=== PATIENT | female | born 1940 | race Caucasian/White ===

== ENCOUNTER 2016-12-11 09:20 | Observation (INO) | payer OTHER ==
[~2016-12-11] VITALS: Ht 167.6 cm; Wt 78.7 kg
[~2016-12-11 09:20] MED LIST: ASPIR 8181 M1 PO; AZOR 5/20 MG1 TABLET PO; B COMPLETE1 EACH PO; CEFTIN500 MG PO; CENTRUM SILVER1 EAC3 PO; CENTRUM SILVER1 EAC4 PO; CLARITIN,ALAVAR10 MG PO; CORICIDIN HBP1 EACH PO; COSAMIN ASU CA1 EACH PO; ENALAPRIL MALEA20 MG PO; ESGIC 50-325-41 EAC1 PO; FIORICET 50-301 EACH PO; FISH OIL 1,2001 EAC4 PO; FLAGYL500 MG PO; FLORASTOR250 MG PO; FUROSEMIDE20 MG PO; IMODIUM MS REL1 EACH PO; LIBRIUM5 MG PO; LISINOPRIL10 MG PO; LO-DOSE ASPIRIN81 M1 PO; LOPERAMIDE2 M1 PO; MAG-OXIDE400 MG PO; MAXZIDE 75/501 EACH PO; MELOXICAM7.5 MG PO; METFORMIN HCL500 MG PO; METOPROLOL TART50 MG PO; NIACIN 500 MG1 EACH PO; NORCO 5/3251 TABLET PO; NORVASC5 MG PO; PREMARIN0.625 MG PO; TEKTURNA150 MG PO; TRAMADOL HCL50 MG PO; ZEGERID OTC 201 EACH PO
[2016-12-11 11:25] LABS: HEMATOCRIT 41.3 % (36.0-46.0); MCH 29.9 PG (29.0-34.0); MCHC 35.8 G/DL (30.0-36.0); MCV 83.4 FL (83-99); MEAN PLAT.VOLUME 9.5 uM^3 (9.5-12.4); PLATELET COUNT 233 K/uL (156-360); RBC DIS.WIDTH-CV 12.2 % (11.8-14.6); RBC DIS.WIDTH-SD 37.1 % (39-53); RED BLOOD COUNT 4.95 M/uL (3.80-5.20); WHITE BLOOD COUNT 14.1 K/uL (4.1-10.2)
[2016-12-11 11:32] LABS: CHLORIDE 88 mEq/L (99-109); POTASSIUM 3.4 mEq/L (3.7-5.4); SODIUM 132 mEq/L (136-147)
[2016-12-11 11:34] LABS: GLUCOSE 150 mg/dL (70-99)
[2016-12-11 11:35] LABS: ANION GAP 14 MEQ/L (2-14)
[2016-12-11 11:38] LABS: GFR ESTIMATE (CALCULATED) > 59 mL/min/
[2016-12-11 11:39] LABS: UREA NITROGEN (BUN) 15 mg/dL (9-23)
[2016-12-11 11:57] LABS: LIPASE 8 U/L (1.0-51.0)
[2016-12-11 13:40] LABS: TROP-I INTERPRETATION NEGATIVE; TROPONIN-I 0.03 ng/mL (0.0-0.30)
[2016-12-11] MEDS ORDERED: NEURONTIN100 MG PO (16:30)
[2016-12-11] MEDS ORDERED: LISINOPRIL40 MG PO (16:30)
[2016-12-11] MEDS ORDERED: ANORO ELLIPTA1 EACH IH (16:33)
[2016-12-11] MEDS ORDERED: HYDROCHLOROTHIA25 MG PO (16:33)
[2016-12-11] MEDS ORDERED: JANUVIA25 M1 PO (16:33)
[2016-12-11] MEDS ORDERED: MELOXICAM7.5 MG PO (16:33)
[2016-12-11 17:36] LABS: TROP-I INTERPRETATION NEGATIVE; TROPONIN-I 0.02 ng/mL (0.0-0.30)
[2016-12-11 19:33] VITALS: BP 180/85
[2016-12-11 23:40] VITALS: BP 187/78
[2016-12-12 00:26] LABS: TROP-I INTERPRETATION NEGATIVE; TROPONIN-I 0.03 ng/mL (0.0-0.30)
[2016-12-12 04:01] LABS: ADD MIUA? YES; BILIRUBIN NEGATIVE; BLOOD NEGATIVE; COLOR YELLOW ((YELLOW)); GLUCOSE (STRIP) NEGATIVE; KETONES 5; LEUKOCYTES SMALL; NITRITE NEGATIVE; PROTEIN (STRIP) NEGATIVE; SPECIFIC GRAVITY 1.015 (1.000-1.030); UROBILINOGEN 0.2 MG/DL (0.2-1.0)
[2016-12-12 04:19] VITALS: BP 152/74
[2016-12-12 04:20] LABS: BACTERIA RARE /HPF; EPITHELIAL CELLS NONE SEEN /HPF; MUCUS NONE SEEN /LPF; RED BLOOD CELLS 0-5 /HPF (0-5); UCUL ADDED? NO
[2016-12-12 06:45] LABS: HEMATOCRIT 34.9 % (36.0-46.0); MCH 30.2 PG (29.0-34.0); MCHC 35.5 G/DL (30.0-36.0); MCV 85.1 FL (83-99); MEAN PLAT.VOLUME 9.5 uM^3 (9.5-12.4); PLATELET COUNT 183 K/uL (156-360); RBC DIS.WIDTH-CV 12.7 % (11.8-14.6); WHITE BLOOD COUNT 7.8 K/uL (4.1-10.2)
[2016-12-12 09:12] LABS: POINT-OF-CARE METER ID UU13113831
[2016-12-12 09:38] VITALS: BP 168/70
== END 2016-12-12 12:20 | disposition home or self-care (01) ==
LOC: EME 09:20 → EDOF 16:54 → 5WEST 16:54 → EDOF 16:54 → 5WEST 19:19
PROVIDERS: Internal Medicine; Nurse Practitioner Family
DX: R11.2 Nausea with vomiting, unspecified (principal); E11.9 Type 2 diabetes mellitus without complications; Z79.82 Long term (current) use of aspirin; R10.13 Epigastric pain; I50.9 Heart failure, unspecified; I11.0 Hypertensive heart disease with heart failure; E78.5 Hyperlipidemia, unspecified; I25.2 Old myocardial infarction; I16.0 Hypertensive urgency; E87.6 Hypokalemia
CPT/HCPCS: 71020; 74177; 80048; 81003; 82948; 83605; 83690; 84484; 85027; 93005; 99281; 99285; G0378; J0360; J1650; J7030; S0028

== ENCOUNTER 2017-01-09 23:43 | Inpatient (IN) | payer OTHER ==
[~2017-01-09] VITALS: Ht 167.6 cm; Wt 78.6 kg
[~2017-01-09 23:43] MED LIST changes: +ANORO ELLIPTA1 EACH IH; +HYDROCHLOROTHIA25 MG PO; +JANUVIA25 M1 PO; +LISINOPRIL40 MG PO; +NEURONTIN100 MG PO
[2017-01-10 00:40] LABS: CHLORIDE 72 mEq/L (99-109)
[2017-01-10 00:41] LABS: INTER. NORMALIZED RATIO 1.1; MAGNESIUM 1.8 mg/dL (1.3-2.7); PTT 26.7 (25-32); SODIUM 120 mEq/L (136-147)
[2017-01-10 00:42] LABS: GLUCOSE 148 mg/dL (70-99)
[2017-01-10 00:44] LABS: ANION GAP 17 MEQ/L (2-14); POTASSIUM 2.1 mEq/L (3.7-5.4)
[2017-01-10 00:46] LABS: GFR ESTIMATE (CALCULATED) 51 mL/min/
[2017-01-10 00:47] LABS: UREA NITROGEN (BUN) 23 mg/dL (9-23)
[2017-01-10 00:49] LABS: CREATINE KINASE 333 IU/L (1-294)
[2017-01-10 00:54] LABS: EOSINOPHIL (%) 0.5 % (0-5); HEMATOCRIT 34.8 % (36.0-46.0); IMMATURE GRANULOCYTE (%) 0.3 % (0.0-0.7); INSTRUMENT ABS NEUTROPHIL CT 6.8 K/uL; MCH 29.8 PG (29.0-34.0); MCHC 37.4 G/DL (30.0-36.0); MCV 79.8 FL (83-99); MEAN PLAT.VOLUME 8.6 uM^3 (9.5-12.4); MONOCYTE (%) 10.7 % (3-12); MONOCYTE COUNT 0.9 K/uL (0-0.8); NEUTROPHIL COUNT 6.8 K/uL (1.8-6.4); RBC DIS.WIDTH-CV 11.4 % (11.8-14.6); RBC DIS.WIDTH-SD 33.1 % (39-53); RED BLOOD COUNT 4.36 M/uL (3.80-5.20); TROP-I INTERPRETATION NEGATIVE; TROPONIN-I 0.03 ng/mL (0.0-0.30); WHITE BLOOD COUNT 8.8 K/uL (4.1-10.2)
[2017-01-10 00:56] LABS: PLATELET COUNT 188 K/uL (156-360)
[2017-01-10 04:45] VITALS: BP 144/69
[2017-01-10 05:59] LABS: ANION GAP 13 MEQ/L (2-14); GFR ESTIMATE (CALCULATED) > 59 mL/min/; GLUCOSE 128 mg/dL (70-99); MAGNESIUM 1.8 mg/dl (1.3-2.7); SAMPLE HEMOLYSIS CHECK 0; SAMPLE ICTERIC CHECK 0; SAMPLE LIPEMIA CHECK 0; SODIUM 122 MEQ/L (136-147); UREA NITROGEN (BUN) 17 mg/dL (9-23)
[2017-01-10 06:33] LABS: CHLORIDE 79 MEQ/L (99-109); POTASSIUM 2.7 MEQ/L (3.7-5.4)
[2017-01-10 06:58] LABS: TROP-I INTERPRETATION NEGATIVE; TROPONIN-I 0.03 ng/mL (0.0-0.30)
[2017-01-10 07:15] VITALS: BP 146/67
[2017-01-10] MEDS ORDERED: APRESOLINE100 MG PO (11:22)
[2017-01-10 11:41] VITALS: BP 145/65
[2017-01-10 11:41] LABS: TROP-I INTERPRETATION NEGATIVE; TROPONIN-I 0.03 ng/mL (0.0-0.30)
[2017-01-10 11:51] LABS: POINT-OF-CARE USER ID ENVKC36
[2017-01-10 13:17] LABS: ANION GAP 7 MEQ/L (2-14); CHLORIDE 82 MEQ/L (99-109); GFR ESTIMATE (CALCULATED) 57 mL/min/; GLUCOSE 110 mg/dL (70-99); SAMPLE HEMOLYSIS CHECK 0; SAMPLE ICTERIC CHECK 0; SAMPLE LIPEMIA CHECK 0; SODIUM 120 MEQ/L (136-147); UREA NITROGEN (BUN) 18 mg/dL (9-23)
[2017-01-10 13:19] LABS: POTASSIUM 3.6 MEQ/L (3.7-5.4)
[2017-01-10 14:52] LABS: ADD MIUA? YES; BILIRUBIN NEGATIVE; BLOOD NEGATIVE; COLOR YELLOW ((YELLOW)); GLUCOSE (STRIP) NEGATIVE; KETONES NEGATIVE; LEUKOCYTES SMALL; NITRITE NEGATIVE; PROTEIN (STRIP) NEGATIVE; SPECIFIC GRAVITY 1.006 (1.000-1.030); UROBILINOGEN 0.2 MG/DL (0.2-1.0)
[2017-01-10 15:15] VITALS: BP 147/66
[2017-01-10 15:31] LABS: BACTERIA 3+ /HPF; EPITHELIAL CELLS RARE /HPF; MUCUS NONE SEEN /LPF; RED BLOOD CELLS 15-20 /HPF (0-5); WHITE BLOOD CELLS CLUMP RARE /HPF (0-5)
[2017-01-10 16:34] LABS: POINT-OF-CARE USER ID ENVKC36
[2017-01-10 17:05] LABS: ANION GAP 9 MEQ/L (2-14); CHLORIDE 82 MEQ/L (99-109); GFR ESTIMATE (CALCULATED) 57 mL/min/; GLUCOSE 108 mg/dL (70-99); POTASSIUM 4.2 MEQ/L (3.7-5.4); SAMPLE HEMOLYSIS CHECK 0; SAMPLE ICTERIC CHECK 0; SAMPLE LIPEMIA CHECK 0; SODIUM 122 MEQ/L (136-147); UREA NITROGEN (BUN) 20 mg/dL (9-23)
[2017-01-10 19:00] VITALS: BP 118/56
[2017-01-10 20:16] LABS: ANION GAP 9 MEQ/L (2-14); CHLORIDE 83 MEQ/L (99-109); GFR ESTIMATE (CALCULATED) > 59 mL/min/; POTASSIUM 3.8 MEQ/L (3.7-5.4); SAMPLE HEMOLYSIS CHECK 0; SAMPLE ICTERIC CHECK 0; SAMPLE LIPEMIA CHECK 0; SODIUM 122 MEQ/L (136-147); UREA NITROGEN (BUN) 19 mg/dL (9-23)
[2017-01-10 20:31] LABS: GLUCOSE 200 mg/dL (70-99)
[2017-01-10 23:00] VITALS: BP 136/63
[2017-01-11] VITALS (7 sets, daily range): BP systolic 133–184; BP diastolic 63–84
[2017-01-11 07:53] LABS: HEMATOCRIT 31.7 % (36.0-46.0); MCH 30.9 PG (29.0-34.0); MCHC 36.6 G/DL (30.0-36.0); MEAN PLAT.VOLUME 8.6 uM^3 (9.5-12.4); PLATELET COUNT 170 K/uL (156-360); RBC DIS.WIDTH-CV 12.2 % (11.8-14.6); RBC DIS.WIDTH-SD 37.2 % (39-53); RED BLOOD COUNT 3.75 M/uL (3.80-5.20); WHITE BLOOD COUNT 5.6 K/uL (4.1-10.2)
[2017-01-11 07:54] LABS: MCV 84.5 FL (83-99)
[2017-01-11 08:23] LABS: POINT-OF-CARE METER ID UU13113781; POINT-OF-CARE USER ID ENVKC36
[2017-01-11 08:55] LABS: ANION GAP 8 MEQ/L (2-14); CHLORIDE 90 MEQ/L (99-109); GFR ESTIMATE (CALCULATED) > 59 mL/min/; POTASSIUM 4.1 MEQ/L (3.7-5.4); SAMPLE HEMOLYSIS CHECK 0; SAMPLE ICTERIC CHECK 0; SAMPLE LIPEMIA CHECK 0; SODIUM 128 MEQ/L (136-147); UREA NITROGEN (BUN) 14 mg/dL (9-23); URIC ACID 5.8 mg/dL (3.1-9.2)
[2017-01-11 08:56] LABS: GLUCOSE 95 mg/dL (70-99)
[2017-01-11 12:02] LABS: POINT-OF-CARE METER ID UU13113781; POINT-OF-CARE USER ID ENVKC36
[2017-01-11 16:56] LABS: POINT-OF-CARE METER ID UU13113698; POINT-OF-CARE USER ID ENVKC36
[2017-01-11 21:30] LABS: POINT-OF-CARE METER ID UU13113781
[2017-01-12 03:56] VITALS: BP 190/84
[2017-01-12 04:29] VITALS: BP 185/78
[2017-01-12 05:35] LABS: EOSINOPHIL (%) 2.7 % (0-5); EOSINOPHIL COUNT 0.2 K/uL (0-0.3); IMMATURE GRANULOCYTE (%) 0.5 % (0.0-0.7); INSTRUMENT ABS NEUTROPHIL CT 4.9 K/uL; LYMPHOCYTE COUNT 1.6 K/uL (1.0-2.8); MCH 30.8 PG (29.0-34.0); MCHC 35.8 G/DL (30.0-36.0); MCV 85.9 FL (83-99); MEAN PLAT.VOLUME 9.1 uM^3 (9.5-12.4); MONOCYTE (%) 8.6 % (3-12); MONOCYTE COUNT 0.6 K/uL (0-0.8); NEUTROPHIL (%) 66.3 % (45-76); NEUTROPHIL COUNT 4.9 K/uL (1.8-6.4); PLATELET COUNT 195 K/uL (156-360); RBC DIS.WIDTH-CV 12.4 % (11.8-14.6); RBC DIS.WIDTH-SD 38.9 % (39-53); RED BLOOD COUNT 4.19 M/uL (3.80-5.20); WHITE BLOOD COUNT 7.4 K/uL (4.1-10.2)
[2017-01-12 05:48] VITALS: BP 144/96
[2017-01-12 05:59] LABS: ANION GAP 10 MEQ/L (2-14); CHLORIDE 96 MEQ/L (99-109); GFR ESTIMATE (CALCULATED) > 59 mL/min/; GLUCOSE 105 mg/dL (70-99); POTASSIUM 4.3 MEQ/L (3.7-5.4); SAMPLE HEMOLYSIS CHECK 0; SAMPLE ICTERIC CHECK 0; SAMPLE LIPEMIA CHECK 0; SODIUM 134 MEQ/L (136-147); UREA NITROGEN (BUN) 13 mg/dL (9-23)
[2017-01-12 07:49] VITALS: BP 180/78
[2017-01-12 11:29] LABS: POINT-OF-CARE METER ID UU13113698
== END 2017-01-12 12:00 | disposition home or self-care (01) | DRG 641 ==
LOC: EME → EDBD 23:43 → EME 23:43 → 4EAST 01-10 03:25 → EDOF 01-10 03:25 → 4EAST 01-10 04:44
PROVIDERS: Emergency Medicine; Hospitalist; Internal Medicine; Internal Medicine Nephrology
DX: E87.6 Hypokalemia (principal); E87.1 Hypo-osmolality and hyponatremia; I11.0 Hypertensive heart disease with heart failure; E78.5 Hyperlipidemia, unspecified; E11.42 Type 2 diabetes mellitus with diabetic polyneuropathy; T50.2X5A Adverse effect of carbonic-anhydrase inhibitors, benzothiadiazides and other diuretics, initial encounter; M19.90 Unspecified osteoarthritis, unspecified site; I50.9 Heart failure, unspecified; I25.2 Old myocardial infarction; Z90.49 Acquired absence of other specified parts of digestive tract; Z79.84 Long term (current) use of oral hypoglycemic drugs; Z79.899 Other long term (current) drug therapy
CPT/HCPCS: 36415; 80048; 80048 91; 80053; 81003; 82088 90; 82150; 82436; 82550; 82570; 82948; 83690; 83735; 83935; 84100; 84133; 84244 90; 84300; 84439; 84443; 84484; 84550; 85025; 85027; 85610; 85730; 87086 GA; 87338; 87493; 93005; 94640; 94640 76; 99281; 99285; J0360; J1644; J2405; J3480; J7030; J7040; S0028

== ENCOUNTER 2017-12-24 21:05 | Inpatient (IN) | payer OTHER ==
[~2017-12-24] VITALS: Ht 162.6 cm; Wt 85.8 kg
[~2017-12-24 21:05] MED LIST changes: +APRESOLINE100 MG PO; +PRILOSEC20 MG PO; +PROCARDIA XL30 MG PO
[2017-12-25 11:38] VITALS: BP 142/79
[2017-12-25 16:21] VITALS: BP 163/69
[2017-12-25 20:05] VITALS: BP 165/74
[2017-12-26] VITALS (7 sets, daily range): BP systolic 115–202; BP diastolic 58–89
[2017-12-26 06:25] LABS: HEMATOCRIT 33.4 % (36.0-46.0); MCV 88.1 FL (83-99)
[2017-12-26 06:35] LABS: HEMOGLOBIN 11.1 G/DL (11.9-15.5)
[2017-12-26] MEDS ORDERED: OXYCODONE HCL5 MG PO (09:10)
[2017-12-26] MEDS ORDERED: HYDRALAZINE HCL25 MG PO (16:40)
== END 2017-12-26 17:50 | disposition home or self-care (01) | DRG 483 ==
LOC: ENRESERV 21:05 → 3EAST 12-25 05:37 → 2SOUTH 12-25 05:37 → ENRESERV 12-25 08:30 → 2SOUTH 12-25 09:51 → 3EAST 12-25 11:31 → 2SOUTH 12-25 15:06 → 3EAST 12-26 17:50
PROVIDERS: Orthopaedic Surgery
PROC: 0RRJ00Z Replacement of Right Shoulder Joint with Reverse Ball and Socket Synthetic Substitute, Open Approach (ICD-10-PCS; principal; 2017-12-25)
PROC: 3E0T3BZ Introduction of Anesthetic Agent into Peripheral Nerves and Plexi, Percutaneous Approach (ICD-10-PCS; 2017-12-25)
DX: M19.011 Primary osteoarthritis, right shoulder (principal); J44.9 Chronic obstructive pulmonary disease, unspecified; I11.0 Hypertensive heart disease with heart failure; I50.9 Heart failure, unspecified; E11.9 Type 2 diabetes mellitus without complications; I35.0 Nonrheumatic aortic (valve) stenosis; E78.5 Hyperlipidemia, unspecified; G43.909 Migraine, unspecified, not intractable, without status migrainosus; Z79.82 Long term (current) use of aspirin; I25.2 Old myocardial infarction
CPT/HCPCS: 36415; 80053; 82948; 85014; 85018; 85025; 85610 GA; 85730 GA; 86850; 86900; 86901; 87641; C1713; J0360; J0690; J1100; J1885; J2405; J2710; J2795; J3010; J7030; J7050; J7120; J7643

== ENCOUNTER 2018-01-09 10:18 | Emergency (ER) | payer OTHER ==
[~2018-01-09] VITALS: Ht 160 cm; Wt 81.0 kg
[~2018-01-09 10:18] MED LIST changes: +HYDRALAZINE HCL25 MG PO; +OXYCODONE HCL5 MG PO
[2018-01-09 11:00] LABS: BASOPHIL (%) 0.4 % (0-1); BASOPHIL COUNT 0.1 K/uL (0-0.1); EOSINOPHIL (%) 0.3 % (0-5); HEMATOCRIT 36.8 % (36.0-46.0); HEMOGLOBIN 12.2 G/DL (11.9-15.5); IMMATURE GRANULOCYTE (%) 0.3 % (0.0-0.7); LYMPHOCYTE (%) 4.8 % (15-42); LYMPHOCYTE COUNT 0.6 K/uL (1.0-2.8); MCH 28.7 PG (29.0-34.0); MCHC 33.2 G/DL (30.0-36.0); MCV 86.6 FL (83-99); MONOCYTE (%) 3.1 % (3-12); MONOCYTE COUNT 0.4 K/uL (0-0.8); NEUTROPHIL (%) 91.1 % (45-76); NEUTROPHIL COUNT 12.3 K/uL (1.8-6.4); PLATELET COUNT 256 K/uL (156-360); RBC DIS.WIDTH-CV 12.9 % (11.8-14.6); RBC DIS.WIDTH-SD 40.7 % (39-53); RED BLOOD COUNT 4.25 M/uL (3.80-5.20); WHITE BLOOD COUNT 13.5 K/uL (4.1-10.2)
[2018-01-09 11:05] LABS: INTER. NORMALIZED RATIO 1.1
[2018-01-09 11:34] LABS: CHLORIDE 104 MEQ/L (99-109); GFR ESTIMATE (CALCULATED) 57 mL/min/; GLUCOSE 183 mg/dL (70-99); POTASSIUM 3.9 MEQ/L (3.7-5.4); SODIUM 141 MEQ/L (136-147); UREA NITROGEN (BUN) 19 mg/dL (9-23)
[2018-01-09] MEDS ORDERED: CIPRO500 MG PO (13:41)
[2018-01-09] MEDS ORDERED: FLAGYL500 MG PO (13:41)
[2018-01-09] MEDS ORDERED: BENTYL20 MG PO (13:41)
[2018-01-09 13:47] VITALS: BP 168/81
== END 2018-01-09 15:09 | disposition home or self-care (01) ==
LOC: EME 10:18
PROVIDERS: Emergency Medicine
DX: K52.9 Noninfective gastroenteritis and colitis, unspecified (principal); E11.9 Type 2 diabetes mellitus without complications; I50.9 Heart failure, unspecified; Z86.73 Personal history of transient ischemic attack (TIA), and cerebral infarction without residual deficits; Z79.84 Long term (current) use of oral hypoglycemic drugs; Z88.8 Allergy status to other drugs, medicaments and biological substances
CPT/HCPCS: 74177; 80048; 85025; 85610; 93005; 99281; 99285; J7030